=== PATIENT | female | born 1985 | race Caucasian/White ===

== ENCOUNTER 2017-02-23 22:26 | Emergency (ER) | payer SELFPAY ==
[2017-02-23] MEDS ORDERED: predniSONE 20 MG TAB PO ONE (22:54)
[2017-02-23] MEDS ORDERED: IPRATROPIUM/ALBUTEROL 3 ML VIAL NEB ONE (22:54)
[2017-02-23] MEDS ORDERED: HYDROcodone 7.5MG/APAP 325MG 1 EA TAB PO ONE (22:55)
--- NOTE | 2017-02-23 23:24 | RAD ---
EXAM: Chest,2 Views CLINICAL INDICATION: 31-year-old female with cough. TECHNIQUE: Two-view, PA and lateral projections of the chest were obtained. COMPARISON: None. FINDINGS: Unremarkable cardiac and mediastinal silhouette. Heart size is normal. Lungs are clear without focal opacity, pneumothorax or pleural effusions. The visualized bones are within normal limits. IMPRESSION: No acute cardiopulmonary abnormalities. Electronically signed by: Nehal Jerez MD 02/23/2017 11:23 PM [employer] Workstation: [id number]
[2017-02-23] MEDS ORDERED: AZITHROMYCIN 250 MG TAB PO ONE (23:34)
--- NOTE | 2017-02-24 00:17 | ED.PDOC ---
History of Present Illness - General Chief Complaint: Respiratory Problem Stated Complaint: cough for 2 months Time Seen by Provider: 02/23/17 22:50 Source: patient Exam Limitations: no limitations - History of Present Illness Initial Comments: The patient is a 31-year-old female presenting to the emergency room secondary to cough that has been persistent over the last couple of months. It has gotten worse over the last couple of days. No definite fevers. It is minimally productive. No history of asthma. No sore throat. The patient does smoke. Timing/Duration: unsure, constant, getting worse Severity: moderate Improving Factors: nothing Worsening Factors: nothing Associated Symptoms: denies symptoms Allergies/Adverse Reactions: Allergies NO KNOWN ALLERGY Allergy (Verified 02/23/17 23:07) Home Medications: Ambulatory Orders Azithromycin 500 mg PO DAILY #5 tab 02/24/17 predniSONE [Prednisone] 20 mg PO DAILY #5 tab 02/24/17 Review of Systems - Review of Systems Constitutional: States: malaise EENTM: States: nose congestion Respiratory: States: cough, wheezing Cardiology: States: no symptoms reported Gastrointestinal/Abdominal: States: no symptoms reported Genitourinary: States: no symptoms reported Musculoskeletal: States: no symptoms reported Skin: States: no symptoms reported Neurological: States: no symptoms reported Endocrine: States: no symptoms reported All other Systems: No Change from Baseline Past Medical History (General) - Patient Medical History Hx Seizures: No Hx Stroke: No Hx Dementia: No Hx Asthma: No Hx of COPD: No Hx Cardiac Disorders: No Hx Congestive Heart Failure: No Hx Pacemaker: No Hx Hypertension: No Hx Thyroid Disease: No Hx Diabetes: No Hx Gastroesophageal Reflux: No Hx Renal Disease: No Hx of HIV: No Hx MRSA: No Surgical History: cholecystectomy - Vaccination History Hx Influenza Vaccination: No Hx Pneumococcal Vaccination: No - Social History Hx Tobacco Use: Yes - Triage Comment ED Triage Comment: Patient states has had cough for over 2 month and now it has gotten worse this past week. Today has gotten worse. Family Medical History - Family History Mother Family History: Unknown Living Status: Still Living Physical Exam - Physical Exam General Appearance: Alert, No apparent distress Eye Exam: bilateral normal Ears, Nose, Throat: hearing grossly normal, normal ENT inspection, normal pharynx Neck: full range of motion, supple, normal inspection Respiratory: chest non-tender, no respiratory distress, no accessory muscle use , rhonchi, wheezing Cardiovascular/Chest: normal peripheral pulses, regular rate, rhythm, no edema Peripheral Pulses: radial,right: 2+, radial,left: 2+, dorsalis pedis,right: 2+, dorsalis pedis,left: 2+ Gastrointestinal/Abdominal: non tender, soft Rectal Exam: deferred Back Exam: normal inspection, no CVA tenderness, no vertebral tenderness Extremity: normal range of motion, non-tender, normal inspection, no pedal edema , normal capillary refill Neurologic: creative consultant II-XII nml as tested, alert, normal mood/affect, oriented x 3 Skin Exam: normal color Comments: Vital Signs - 24 hr 02/23/17 02/23/17 02/23/17 22:47 22:51 23:10 Temperature 99.0 F Pulse Rate 77 Pulse Rate [ 73 monitor] Respiratory 22 22 20 Rate Blood Pressure 114/66 [Left Arm] O2 Sat by Pulse 99 97 Oximetry Progress - Progress Progress: 02/24/17 00:17 the patient's 31-year-old female presenting to the emergency room secondary to persistent bronchitis. The patient will be placed on azithromycin for 5 days. She will initially be placed on prednisone for 5 days. She needs to take liquid Robitussin 4 or 5 times a day as necessary for cough suppression. Ibuprofen additionally may be used with food to help reduce irritation and cough. She needs to keep well-hydrated. She needs to not smoke for at least 3 weeks. ER warnings were given for any significant worsening. Chest x-ray is essentially clear. She should follow up with her primary care doctor in 4-5 days. a humidifier at night may also help. She should also take one Zyrtec nightly for the next 2 weeks. 02/24/17 00:20 Departure - Departure Clinical Impression: Bronchitis Disposition: Discharge to Home or Self Care Condition: Fair Departure Forms: ED Discharge - Pt. Copy, Patient Portal Self Enrollment Instructions: DI for Acute Bronchitis Diet: regular diet Activity: increase activity as tolerated Prescriptions: Azithromycin 500 mg PO DAILY #5 tab predniSONE [Prednisone] 20 mg PO DAILY #5 tab Home Medications: Ambulatory Orders Azithromycin 500 mg PO DAILY #5 tab 02/24/17 predniSONE [Prednisone] 20 mg PO DAILY #5 tab 02/24/17 Additional Instructions: the patient's 31-year-old female presenting to the emergency room secondary to persistent bronchitis. The patient will be placed on azithromycin for 5 days. She will initially be placed on prednisone for 5 days. She needs to take liquid Robitussin 4 or 5 times a day as necessary for cough suppression. Ibuprofen additionally may be used with food to help reduce irritation and cough. She needs to keep well-hydrated. She needs to not smoke for at least 3 weeks. ER warnings were given for any significant worsening. Chest x-ray is essentially clear. She should follow up with her primary care doctor in 4-5 days. a humidifier at night may also help. She should also take one Zyrtec nightly for the next 2 weeks.
[2017-02-24] MEDS ORDERED: CETIRIZINE HCL 10 MG TAB PO ONE (00:21)
[2017-02-24 00:34] VITALS: BP 115/78; TEMP 98.9; O2SAT 99
== END 2017-02-24 00:35 | disposition home or self-care (01) ==
LOC: ER 22:26
DX: J40 Bronchitis, not specified as acute or chronic (principal); Z87.891 Personal history of nicotine dependence
CPT/HCPCS: 71020; 94640; J7512; J7620; Q0144